=== PATIENT | female | born 1990 | race Caucasian/White ===

== ENCOUNTER 2017-09-16 15:15 | Outpatient (CLI) | payer OTHER ==
[2017-09-16 21:18] LABS: ADD MAN DIFF? NO
[2017-09-16 21:21] LABS: WHITE BLOOD COUNT 7.6 10^3/ul (4.8-10.8)
[2017-09-16 21:21] LABS: BASOPHILS % 0.1 % (0.0-2.0); EOSINOPHILS # 0.1 10^3/ul (0.0-0.5); EOSINOPHILS % 1.2 % (0.0-7.0); HEMATOCRIT 30.4 % (37.0-47.0); LYMPHOCYTES # 1.2 10^3/ul (0.8-2.9); LYMPHOCYTES % 16.2 % (15.0-51.0); MEAN CORPUSCULAR HEMOGLOBIN 27.6 pg (29.0-33.0); MEAN CORPUSCULAR HGB CONC 32.9 g/dl (32.0-37.0); MEAN PLATELET VOLUME 10.7 fl (7.4-10.4); MONOCYTE # 0.5 10^3/ul (0.3-0.9); MONOCYTES % 6.2 % (0.0-11.0); NEUTROPHIL # 5.7 10^3/ul (1.6-7.5); NEUTROPHILS % 75.8 % (39.0-77.0); PLATELET COUNT 222 10^3/UL (140-415); RED BLOOD COUNT 3.62 10^6/ul (4.20-5.40); RED CELL DISTRIBUTION WIDTH 13.2 % (11.5-14.5)
[2017-09-16 21:44] LABS: ALANINE AMINOTRANSFERASE 32 IU/L (13-69); ALBUMIN 3.6 g/dl (3.3-4.9); ALBUMIN/GLOBULIN RATIO 1.12; ALKALINE PHOSPHATASE 109 IU/L (42-121); AMYLASE 71 U/L (11-123); ANION GAP 11 (8-16); ASPARTATE AMINO TRANSFERASE 40 IU/L (15-46); BILIRUBIN,INDIRECT 1.6 mg/dl (0-1.1); BILIRUBIN,TOTAL 1.6 mg/dl (0.2-1.3); BLOOD UREA NITROGEN 3 mg/dl (7-20); CARBON DIOXIDE 23 mmol/L (21-31); CHLORIDE 106 mmol/L (97-110); CREATININE 0.51 mg/dl (0.44-1.00); GLUCOSE 80 mg/dl (70-220); LIPASE 205 U/L (23-300); POTASSIUM 3.3 mmol/L (3.5-5.1); SODIUM 137 mmol/L (135-144); TOTAL PROTEIN 6.8 g/dl (6.1-8.1)
[2017-09-16] MEDS: HYDROCODONE/APAP (5/325) TAB PO (22:31)
== END 2017-09-16 23:27 | disposition home or self-care (01) ==
LOC: OBT 15:15 → L-D 15:16
DX: O99.613 Diseases of the digestive system complicating pregnancy, third trimester (principal); K80.20 Calculus of gallbladder without cholecystitis without obstruction; O26.893 Other specified pregnancy related conditions, third trimester; R10.10 Upper abdominal pain, unspecified; Z3A.28 28 weeks gestation of pregnancy
CPT/HCPCS: 76705; 76815; 76817; 76818; 80053; 82150; 83690; 85025

== ENCOUNTER 2017-11-20 12:33 | Inpatient (IN) | payer OTHER ==
[~2017-11-20 12:33] MED LIST: CHLOROPROCAINE 3% (MPF) 20 ML INJ; OXYTOCIN 30 UNITS/LR 500 ML BAG IV
[2017-11-20 13:12] LABS: RUPTURE FETAL MEMBRANES NEGATIVE (NEGATIVE)
[2017-11-20] MEDS ORDERED: CARBOPROST 250 MCG INJ IM ×2 (16:30→21:30)
[2017-11-20] MEDS ORDERED: METHYLERGONOVINE 0.2 MG INJ IM ×2 (16:30→21:30)
[2017-11-20] MEDS ORDERED: MISOPROSTOL 200 MCG TAB PR ×2 (16:30→21:30)
[2017-11-20] MEDS ORDERED: OXYTOCIN 30 UNITS/LR 500 ML IV ×3 (16:30→21:30)
[2017-11-20] MEDS: LACTATED RINGER'S 1,000 ML IV (16:45)
[2017-11-20 16:48] LABS: ADD MAN DIFF? NO
[2017-11-20 16:52] LABS: WHITE BLOOD COUNT 8.4 10^3/ul (4.8-10.8)
[2017-11-20 16:52] LABS: BASOPHILS % 0.2 % (0.0-2.0); EOSINOPHILS % 0.4 % (0.0-7.0); HEMATOCRIT 30.3 % (37.0-47.0); HEMOGLOBIN 9.8 g/dl (12.0-16.0); LYMPHOCYTES # 1.5 10^3/ul (0.8-2.9); LYMPHOCYTES % 17.7 % (15.0-51.0); MEAN CORPUSCULAR HEMOGLOBIN 24.3 pg (29.0-33.0); MEAN CORPUSCULAR HGB CONC 32.3 g/dl (32.0-37.0); MEAN PLATELET VOLUME 11.4 fl (7.4-10.4); MONOCYTE # 0.4 10^3/ul (0.3-0.9); NEUTROPHIL # 6.4 10^3/ul (1.6-7.5); NEUTROPHILS % 76.3 % (39.0-77.0); PLATELET COUNT 253 10^3/UL (140-415); RED BLOOD COUNT 4.04 10^6/ul (4.20-5.40); RED CELL DISTRIBUTION WIDTH 15.8 % (11.5-14.5)
[2017-11-20 17:14] LABS: INR 1.03; PARTIAL THROMBOPLASTIN TIME 28.1 Sec (25.0-35.0); PROTIME 13.6 Sec (11.9-14.9); PT RATIO 1.1
[2017-11-20] MEDS ORDERED: morphine SULFATE/PF (10 MG/10 ML) INJ (17:41)
[2017-11-20] MEDS ORDERED: BUPIVACAINE 0.75%/DEXT (SPINAL) 2 ML INJ (17:46)
[2017-11-20] MEDS: CEFAZOLIN 2 GM/50 ML (PMX) 50 ML IV (17:52)
[2017-11-20] MEDS ORDERED: PHENYLephrine (100 MCG/ML) 5ML SYG ×3 (18:20→19:16)
[2017-11-20 18:32] LABS: HEPATITIS B SURFACE ANTIGEN NEGATIVE (NEGATIVE)
[2017-11-20] MEDS ORDERED: METOCLOPRAMIDE 10 MG INJ IV (19:30)
[2017-11-20] MEDS ORDERED: ONDANSETRON 4 MG INJ IV ×2 (19:30)
[2017-11-20] MEDS ORDERED: NALOXONE (0.4 MG/ML) INJ IV (19:30)
[2017-11-20] MEDS ORDERED: FENTAnyl 50 MCG/ML VIAL IV ×2 (19:30)
[2017-11-20] MEDS ORDERED: ZOLPIDEM 5 MG TAB PO (19:30)
[2017-11-20] MEDS ORDERED: HYDROmorphONE (0.2 MG/ML) 10ML SYG IV ×2 (19:30)
[2017-11-20] MEDS ORDERED: HYDROmorphONE 0.5 MG/0.5 ML SYG IV (19:30)
[2017-11-20] MEDS ORDERED: DIPHENHYDRAMINE 50 MG INJ IV ×2 (19:30)
[2017-11-20] MEDS: KETOROLAC 30 MG INJ IV (20:00)
[2017-11-20] MEDS: OXYTOCIN 30 UNITS/LR 500 ML IV (21:00)
[2017-11-20] MEDS: HYDROmorphONE 0.5 MG/0.5 ML SYG IV (21:25)
[2017-11-20] MEDS ORDERED: OXYCODONE/ACETAMINOPHEN (5/325) TAB PO ×2 (21:30)
[2017-11-20] MEDS ORDERED: LANOLIN 7 GM TUBE TOP (21:30)
[2017-11-21] MEDS: HYDROmorphONE 0.5 MG/0.5 ML SYG IV (00:37)
[2017-11-21] MEDS: OXYTOCIN 30 UNITS/LR 500 ML IV ×6 (02:11→17:08)
[2017-11-21] MEDS: CEFAZOLIN 1 GM/50 ML (PMX) 50 ML IVPB (02:59)
[2017-11-21] MEDS: KETOROLAC 30 MG INJ IV ×2 (06:00→16:15)
[2017-11-21] MEDS: SENNA/DOCUSATE NA (8.6MG/50MG) TAB PO ×2 (09:26→20:36)
[2017-11-21 09:37] LABS: ADD MAN DIFF? NO
[2017-11-21 09:40] LABS: BASOPHILS % 0.1 % (0.0-2.0); EOSINOPHILS % 0.3 % (0.0-7.0); HEMATOCRIT 25.4 % (37.0-47.0); HEMOGLOBIN 8.2 g/dl (12.0-16.0); LYMPHOCYTES # 1.2 10^3/ul (0.8-2.9); LYMPHOCYTES % 14.1 % (15.0-51.0); MEAN CORPUSCULAR HEMOGLOBIN 24.1 pg (29.0-33.0); MEAN CORPUSCULAR HGB CONC 32.3 g/dl (32.0-37.0); MEAN CORPUSCULAR VOLUME 74.7 fl (82.0-101.0); MEAN PLATELET VOLUME 11.5 fl (7.4-10.4); MONOCYTE # 0.6 10^3/ul (0.3-0.9); NEUTROPHIL # 6.8 10^3/ul (1.6-7.5); NEUTROPHILS % 78.2 % (39.0-77.0); PLATELET COUNT 201 10^3/UL (140-415); RED CELL DISTRIBUTION WIDTH 15.9 % (11.5-14.5)
[2017-11-21 09:40] LABS: WHITE BLOOD COUNT 8.7 10^3/ul (4.8-10.8)
[2017-11-21] MEDS: LACTATED RINGER'S 1,000 ML IV (17:13)
[2017-11-21] MEDS: IBUPROFEN 600 MG TAB PO ×2 (20:00→23:38)
[2017-11-21] MEDS: HYDROCODONE/APAP (5/325) TAB PO (20:36)
[2017-11-21 22:16] LABS: RAPID PLASMA REAGIN NONREACTIVE (NR)
[2017-11-22] MEDS: IBUPROFEN 600 MG TAB PO ×4 (05:39→23:49)
[2017-11-22] MEDS: OXYTOCIN 30 UNITS/LR 500 ML IV ×6 (08:00→21:08)
[2017-11-22] MEDS: SENNA/DOCUSATE NA (8.6MG/50MG) TAB PO ×2 (11:06→21:29)
[2017-11-22] MEDS: HYDROCODONE/APAP (5/325) TAB PO (13:02)
[2017-11-22] MEDS: NA PHOSPHATE/BIPHOS 133 ML ENEMA PR (17:41)
[2017-11-23] MEDS: OXYTOCIN 30 UNITS/LR 500 ML IV ×3 (01:08→09:08)
[2017-11-23] MEDS: IBUPROFEN 600 MG TAB PO ×2 (06:41→12:45)
[2017-11-23] MEDS: DIPHTH/TET/ACEL PERTUSS (ADULT) 0.5 ML VIAL IM* (09:00)
[2017-11-23] MEDS: SENNA/DOCUSATE NA (8.6MG/50MG) TAB PO (09:00)
== END 2017-11-23 18:43 | disposition home or self-care (01) | DRG 766 ==
LOC: OBT 12:33 → L-D 12:37 → OBT 16:20 → L-D 16:20 → PP1 21:39
PROVIDERS: Obstetrics & Gynecology
PROC: 10D00Z1 Extraction of Products of Conception, Low, Open Approach (ICD-10-PCS; principal; 2017-11-20 17:30)
DX: O34.211 Maternal care for low transverse scar from previous cesarean delivery (principal); Z3A.38 38 weeks gestation of pregnancy; Z37.0 Single live birth
CPT/HCPCS: 62319; 76818; 84112; 85025; 85610; 85730; 86592; 86850; 86900; 86901; 87340; 99464; J2400

== ENCOUNTER 2019-03-28 14:08 | Outpatient (CLI) | payer OTHER | END 2019-03-28 17:00 | disposition home or self-care (01) | LOC: OBT 14:08 → L-D 14:08 → OBT 17:00 | DX: O47.03 False labor before 37 completed weeks of gestation, third trimester (principal); Z3A.34 34 weeks gestation of pregnancy | CPT/HCPCS: 76818 ==